=== PATIENT | male | born 1985 | race African-American/Black ===

== ENCOUNTER 2022-02-21 04:18 | Emergency (ER) | payer MEDICAID ==
[~2022-02-21] VITALS: Ht 188 cm; Wt 102.5 kg
[2022-02-21 04:32] VITALS: BP 140/102
[2022-02-21] MEDS ORDERED: ONDANSETRON 4MG ODT PO ONE (05:15)
[2022-02-21 05:40] LABS: CHLORIDE 110 mEq/L (98-107)
[2022-02-21 05:41] LABS: BASOPHILS % 0.7 % (0.0-2.0); EOSINOPHILS % 0.9 % (0.0-5.0); HEMATOCRIT. 45.8 % (42.0-52.0); HEMOGLOBIN. 15.3 g/dL (14.0-18.0); LYMPHOCYTES % 29.8 % (20.0-50.0); MEAN CORPUSCULAR HEMOGLOBIN 29.6 pg (28.0-32.0); MEAN CORPUSCULAR VOLUME 88.4 fL (80.0-94.0); MEAN PLATELET VOLUME 9.5 fl (7.4-10.4); MONOCYTES % 10.1 % (2.0-8.0); NEUTROPHILS % 58.5 % (40.0-76.0); PLATELET 282 x1000/uL (130-400); RED BLOOD CELL COUNT 5.18 mill/uL (4.7-6.1); RED CELL DISTRIBUTION WIDTH 14.9 % (11.6-14.6)
== END 2022-02-21 07:15 | disposition home or self-care (01) ==
LOC: ER 04:18 → EDBD 04:18 → ER 07:15
DX: B34.9 Viral infection, unspecified (principal); Z20.822 Contact with and (suspected) exposure to COVID-19
CPT/HCPCS: 36415; 80053; 83690; 85025; 87426; 99283; Q0162